=== PATIENT | male | born 1970 ===

== ENCOUNTER 2020-07-27 03:11 | Outpatient (CLI) | payer OTHER, SELFPAY ==
[2020-07-30 14:41] LABS: SARS-CoV-2 Specimen Source Nasal
[2020-07-30 20:27] LABS: SARS-CoV-2 RNA Detected (Undetected)
== END 2020-07-27 03:31 ==
PROVIDERS: Visit Provider Family Medicine
DX: Z20.828 Contact with and (suspected) exposure to other viral communicable diseases (principal)
CPT/HCPCS: U0003